=== PATIENT | female | born 1945 | race Caucasian/White ===

== ENCOUNTER 2021-02-08 14:49 | Emergency (ER) | payer MEDICARE, OTHER ==
[~2021-02-08 14:49] MED LIST: ARIMIDEX1 MG PO; BENTYL 20MG TAB20 MG PO; BUSPIRONE HCL15 MG PO; CALCIUM PO; CEFUROXIME250 MG PO; CRESTOR40 MG PO; CURCUMIN250 GM PO; DIAZEPAM2 MG PO; ECOTRIN81 MG PO; FLAGYL500 MG PO; FLAX SEED OIL1000 MG PO; IMODIUM CAP 2 MG2 MG PO; K-DUR TAB 20 M20 MEQ PO; KLONOPIN1 MG PO; KLOR-CON 1010 MEQ PO; LEVAQUIN500 MG PO; LEVOFLOXACIN250 MG PO; LOPRESSOR 25 MG25 MG PO; LORTAB 7.5-3251 EACH PO; LYRICA100 MG PO; NITROSTAT0.4 MG SL; NORCO 7.5-3251 EACH PO; PLAVIX 75 MG TA75 MG PO; PLETAL 100 MG100 MG PO; SYMBICORT 160-1 INHA INH; SYNTHROID 25 M25 MCG PO; VALIUM 10 MG TA10 MG PO; VENTOLIN HFA 66.7 GM INH; VITAMIN D PO; VITAMIN D32000 UNI1 PO; ZOFRAN ODT 4 MG4 MG PO; [UNRECOGNIZED DRUG - OTHER] SL
== END 2021-02-08 16:40 | disposition left against medical advice (07) ==
LOC: ER1 14:49
DX: Z53.21 Procedure and treatment not carried out due to patient leaving prior to being seen by health care provider (principal)
CPT/HCPCS: 93005

== ENCOUNTER 2021-03-08 11:18 | Emergency (ER) | payer MEDICARE, OTHER ==
[2021-03-08 13:21] LABS: HEMOGLOBIN 15.4 gm/dl (12.3-15.3); RED BLOOD COUNT 4.48 M/UL (4.00-5.10); WHITE BLOOD COUNT 14.5 K/UL (4.5-11.0)
[2021-03-08] MEDS ORDERED: VIBRAMYCIN 100100 MG PO (16:02)
[2021-03-08] MEDS ORDERED: KEFLEX CAP 250250 MG PO (16:02)
== END 2021-03-08 16:24 | disposition home or self-care (01) ==
LOC: ER1 11:18
PROVIDERS: Emergency Medicine
DX: L08.9 Local infection of the skin and subcutaneous tissue, unspecified (principal); I25.2 Old myocardial infarction; F17.210 Nicotine dependence, cigarettes, uncomplicated; Z97.10 Presence of artificial limb (complete) (partial), unspecified
CPT/HCPCS: 73590; 80053; 85025; 99283

== ENCOUNTER → 2022-01-12 | Outpatient (CLI) | payer MEDICARE, OTHER ==
[~2022-01-12] MED LIST changes: +KEFLEX CAP 250250 MG PO; +VIBRAMYCIN 100100 MG PO
== END ==
LOC: EXRD 11:30
DX: Z78.0 Asymptomatic menopausal state (principal); M85.852 Other specified disorders of bone density and structure, left thigh
CPT/HCPCS: 77080